=== PATIENT | female | born 1995 | race Caucasian/White ===

== ENCOUNTER 2017-04-14 01:49 | Observation (INO) | payer SELFPAY ==
[2017-04-14] VITALS (7 sets, daily range): BP systolic 92–133; BP diastolic 54–83; PULSE 63–100; RESP 15–16; TEMP 97.8–98.9; O2SAT 91–100
[~2017-04-14] VITALS: Ht 162.6 cm; Wt 68.0 kg
[2017-04-14 03:46] LABS: AUTOMATED NEUTROPHIL # 7.4 TH/MM3 (1.8-7.7); BASOPHIL # 0.1 TH/MM3 (0-0.2); BASOPHIL % 0.6 % (0.0-2.0); EOSINOPHIL % 0.5 % (0.0-4.0); HEMATOCRIT 40.8 % (35.0-46.0); HEMOGLOBIN 14.2 GM/DL (11.6-15.3); LYMPH % 10.8 % (9.0-44.0); MEAN CELL VOLUME 84.9 FL (80.0-100.0); MEAN CORPUSCULAR HEMOGLOBIN 29.5 PG (27.0-34.0); MEAN CORPUSCULAR HGB CONC 34.7 % (32.0-36.0); MEAN PLATELET VOLUME 7.5 FL (7.0-11.0); MONO % 6.2 % (0.0-8.0); MONOCYTE # 0.6 TH/MM3 (0-0.9); NEUT % 81.9 % (16.0-70.0); PLATELET COUNT 259 TH/MM3 (150-450); RED CELL DISTRIBUTION WIDTH 13.6 % (11.6-17.2); WHITE BLOOD COUNT 9.1 TH/MM3 (4.0-11.0)
[2017-04-14 03:53] LABS: BILIRUBIN, URINE NEG (NEG); BLOOD, URINE MOD (NEG); GLUCOSE,URINE NEG (NEG); KETONE, URINE 10 mg/dL (NEG); MUCUS URINE FEW /lpf (OCC); NITRITE,URINE NEG (NEG); PH, URINE 5.5 (5.0-8.5); SQUAMOUS EPITHELIAL CELL URINE 2 /hpf (0-5); URINE COLOR YELLOW (YELLW/STRAW); URINE LEUKOCYTE ESTERASE NEG (NEG)
[2017-04-14 04:09] LABS: ALBUMIN 4.1 GM/DL (3.4-5.0); ALT (GPT) 9 U/L (10-53); AST (GOT) 22 U/L (15-37); BICARBONATE 24.7 MEQ/L (21.0-32.0); BLOOD UREA NITROGEN 14 MG/DL (7-18); CHLORIDE 105 MEQ/L (98-107); CREATININE 0.71 MG/DL (0.50-1.00); GLOMERULAR FILTRATION RATE 101 ML/MIN (>89); GLUCOSE,RANDOM 167 MG/DL (74-106); SODIUM (NA) 138 MEQ/L (136-145)
[2017-04-14 04:11] LABS: ALKALINE PHOSPHATASE 70 U/L (45-117); TOTAL BILIRUBIN ADULT 0.5 MG/DL (0.2-1.0); TOTAL PROTEIN 8.5 GM/DL (6.4-8.2)
--- NOTE | 2017-04-14 05:23 | RADRPT ---
EXAM DATE/TIME: 04/14/2017 04:46 [facility] COMPARISON: No previous studies available for comparison. INDICATIONS : Right upper quadrant pain. MEDICAL HISTORY : Gallstones. SURGICAL HISTORY : None. ENCOUNTER: Initial ACUITY: 3 days PAIN SCORE: 7/10 LOCATION: Right upper quadrant MEASUREMENTS: LIVER: 13.5 cm length COMMON DUCT: 6 mm RIGHT KIDNEY: 10.1 x 4.8 x 4.6 cm FINDINGS: LIVER: Normal echotexture without focal lesion or ductal dilatation. COMMON DUCT: Upper limits of normal in size. No intraluminal mass or stone visualized. GALLBLADDER: There is a single 13 mm stone in the gallbladder neck. There is diffuse gallbladder wall thickening a nd likely trace pericholecystic fluid. No sonographic Hahn's sign. PANCREAS: The visualized portions are within normal limits. RIGHT KIDNEY: No evidence of hydronephrosis, stone, or mass. CONCLUSION: 1. Cholelithiasis with sonographic findings concerning for cholecystitis. HIDA scan may be performed to evaluate for cystic duct patency if there is continued clinical uncertainty. Dixon Steel MD on April 14, 2017 at 5:19 Board Certified Radiologist. This report was verified electronically.
[2017-04-14] MEDS ORDERED: ACETAMINOPHEN 325 MG TAB PO PRN (05:30)
[2017-04-14] MEDS ORDERED: SODIUM CHLORIDE 0.9% FLUSH 10 ML FLUSH IV FLUSH PRN (05:30)
[2017-04-14] MEDS ORDERED: NALOXONE HCL 0.4 MG/ML AMP IV PUSH PRN (05:30)
[2017-04-14] MEDS ORDERED: ONDANSETRON HCL 4 MG/2 ML VIAL IVP PRN (05:30)
[2017-04-14] MEDS ORDERED: SINCALIDE 5 MCG/5 ML VIAL IV ONE (05:41)
--- NOTE | 2017-04-14 05:41 | PD ---
HPI Chief Complaint: Abdominal Pain Time Seen by Provider: 04:19 Travel History International Travel<30 days: No Contact w/Intl Traveler<30days: No Traveled to known affect area: No History of Present Illness HPI 22-year-old female presents to the emergency department for complaint of right upper quadrant epigastric pain with nausea and vomiting. Symptoms have been present for 4 hours. Patient reports pain as severe. Patient was diagnosed one year ago with ultrasound with cholelithiasis and encouraged to have her gallbladder removed at that time. Subsequently patient has had several episodes of minor discomfort however after eating tacos last night has had persistent severe right upper quadrant pain. No reported voiced complaint of hematemesis coffee-ground emesis or melena. No report of fever or chills. Patient reports her pain 8/10 in intensity. Patient denies . [facility] Past Medical History Narrative Medical Cholelithiasis; no tobacco use; nursing notes reviewed Diminished Hearing: No Medical other: Yes (gallstones) ?: Unknown LMP: 04/14/17 Social History Alcohol Use: No Tobacco Use: No Substance Use: No Allergies-Medications (Allergen,Severity, Reaction): Coded Allergies: No Known Allergies (Unverified , 04/14/17) Narrative Medication none Review of Systems Except as stated in HPI: all other systems reviewed are Neg Physical Exam Narrative GENERAL: Well-developed well-nourished female in obvious discomfort SKIN: Warm and dry. HEAD: Normocephalic. EYES: No scleral icterus. No injection or drainage. NECK: Supple, trachea midline. No JVD or lymphadenopathy. CARDIOVASCULAR: Regular rate and rhythm without murmurs, gallops, or rubs. RESPIRATORY: Breath sounds equal bilaterally. No accessory muscle use. GASTROINTESTINAL: Abdomen soft, right upper quadrant and epigastric tenderness to palpation without guarding or rebound, nondistended. MUSCULOSKELETAL: No cyanosis, or edema. BACK: Nontender without obvious deformity. No CVA tenderness. Data Data Last Documented VS Vital Signs Date Time Temp Pulse Resp B/P (MAP) Pulse Ox O2 Delivery O2 Flow Rate FiO2 04/14/17 01:57 97.8 89 16 121/83 (96) 100 Orders Orders Complete Blood Count With Diff (04/14/17 02:52) Comprehensive Metabolic Panel (04/14/17 02:52) Urinalysis - C+S If Indicated (04/14/17 02:52) Iv Access Insert/Monitor (04/14/17 02:52) Oxygen Administration (04/14/17 02:52) Oximetry (04/14/17 02:52) Lipase (04/14/17 02:52) Ed Urine Pregnancytest Poc (04/14/17 04:01) Us Abdomen Gallbladder (04/14/17 ) Place In Observation (04/14/17 ) Vital Signs (Adult) Q4H (04/14/17 05:26) Activity Oob Ad Isis (04/14/17 05:26) Intake + Output NATHALIA.QSHIFT (04/14/17 05:26) Diet Npo (04/14/17 Breakfast) Sodium Chlor 0.9% 1000 Ml Inj (Ns 1000 M (04/14/17 05:26) Sodium Chloride 0.9% Flush (Ns Flush) (04/14/17 05:30) Sodium Chloride 0.9% Flush (Ns Flush) (04/14/17 09:00) Acetaminophen (Tylenol) (04/14/17 05:30) Ondansetron Inj (Zofran Inj) (04/14/17 05:30) Comprehensive Metabolic Panel (04/15/17 06:00) Complete Blood Count With Diff (04/15/17 06:00) Case Management Consult (04/14/17 05:26) Scd Bilateral/Knee High NATHALIA.BID (04/14/17 05:26) Naloxone Inj (Narcan Inj) (04/14/17 05:30) Consult Gastroenterology (04/14/17 ) Admit Order (Ed Use Only) (04/14/17 ) Vital Signs (Adult) Q4H (04/14/17 05:39) Activity Oob With Assistance (04/14/17 05:39) Notify Dr: Other (04/14/17 05:39) Piperacil-Tazo 4.5 Gm Premix (Zosyn 4.5 (04/14/17 05:45) Labs Laboratory Tests Test 04/14/17 03:00 White Blood Count 9.1 TH/MM3 Red Blood Count 4.80 MIL/MM3 Hemoglobin 14.2 GM/DL Hematocrit 40.8 % Mean Corpuscular Volume 84.9 FL Mean Corpuscular Hemoglobin 29.5 PG Mean Corpuscular Hemoglobin Concent 34.7 % Red Cell Distribution Width 13.6 % Platelet Count 259 TH/MM3 Mean Platelet Volume 7.5 FL Neutrophils (%) (Auto) 81.9 % Lymphocytes (%) (Auto) 10.8 % Monocytes (%) (Auto) 6.2 % Eosinophils (%) (Auto) 0.5 % Basophils (%) (Auto) 0.6 % Neutrophils # (Auto) 7.4 TH/MM3 Lymphocytes # (Auto) 1.0 TH/MM3 Monocytes # (Auto) 0.6 TH/MM3 Eosinophils # (Auto) 0.0 TH/MM3 Basophils # (Auto) 0.1 TH/MM3 CBC Comment DIFF FINAL Differential Comment Urine Color YELLOW Urine Turbidity CLEAR Urine pH 5.5 Urine Specific [place] 1.024 Urine Protein NEG mg/dL Urine Glucose (UA) NEG mg/dL Urine Ketones 10 mg/dL Urine Occult Blood MOD Urine Nitrite NEG Urine Bilirubin NEG Urine Urobilinogen LESS THAN 2.0 MG/DL Urine Leukocyte Esterase NEG Urine RBC 2 /hpf Urine WBC 2 /hpf Urine Squamous Epithelial Cells 2 /hpf Urine Mucus FEW /lpf Urine Yeast (Budding) RARE Microscopic Urinalysis Comment CULT NOT INDICATED Blood Urea Nitrogen 14 MG/DL Creatinine 0.71 MG/DL Random Glucose 167 MG/DL Total Protein 8.5 GM/DL Albumin 4.1 GM/DL Calcium Level 9.0 MG/DL Alkaline Phosphatase 70 U/L Aspartate Amino Transf (AST/SGOT) 22 U/L Alanine Aminotransferase (ALT/SGPT) 9 U/L Total Bilirubin 0.5 MG/DL Sodium Level 138 MEQ/L Potassium Level 3.6 MEQ/L Chloride Level 105 MEQ/L Carbon Dioxide Level 24.7 MEQ/L Anion Gap 8 MEQ/L Estimat Glomerular Filtration Rate 101 ML/MIN Lipase 122 U/L [facility] Medical Decision Making Medical Screen Exam Complete: Yes Emergency Medical Condition: Yes Medical Record Reviewed: Yes Interpretation(s) [id number] hCG: Negative Last Impressions Gall Bladder Ultrasound 04/14/17 0000 Signed Impressions: Service Date/Time: Friday, April 14, 2017 04:46 - CONCLUSION: 1. Cholelithiasis with sonographic findings concerning for cholecystitis. HIDA scan may be performed to evaluate for cystic duct patency if there is continued clinical uncertainty. Dixon Steel MD CBC & BMP Diagram 04/14/17 03:00 Total Protein 8.5 H, Albumin 4.1, Calcium Level 9.0, Alkaline Phosphatase 70, Aspartate Amino Transf (AST/SGOT) 22, Alanine Aminotransferase (ALT/SGPT) 9 L, Total Bilirubin 0.5 Vital Signs Date Time Temp Pulse Resp B/P (MAP) Pulse Ox O2 Delivery O2 Flow Rate FiO2 04/14/17 01:57 97.8 89 16 121/83 (96) 100 Differential Diagnosis Abdominal pain, cholecystitis, choledocholithiasis, pancreatitis, gastritis Narrative Course IV access obtained specimens collected and sent for resulting ultrasound of the gallbladder ordered Ultrasound is identified to have cholelithiasis with thickening of the gallbladder for cholecystitis Patient's case discussed with medicine service for admission for cholecystitis Physician Communication Physician Communication discussed with Dr Ortiz Diagnosis Primary Impression: Cholecystitis with cholelithiasis Admitting Information Admitting Physician Requests: Admit Erma Hernandez MD Apr 14, 2017 05:41
[2017-04-14] MEDS ORDERED: PIPERACIL-TAZO 4.5 GM PREMIX 100 ML IV ONE (05:45)
[2017-04-14] MEDS: SODIUM CHLOR 0.9% 1000 ML INJ 1,000 ML IV SCH ×2 (05:51→17:36)
[2017-04-14] MEDS: SODIUM CHLORIDE 0.9% FLUSH 10 ML FLUSH IV FLUSH SCH ×2 (08:07→21:00)
--- NOTE | 2017-04-14 12:08 | RADRPT ---
EXAM DATE/TIME: 04/14/2017 10:00 [facility] COMPARISON: No previous studies available for comparison. INDICATIONS : Abdominal pain. DOSE: 4.3 mCi Tc99m Mebrofenin IV MEDICATION: 1.4 mcg Cholecystokinin IV; No symptomatic response. Cholecystokinin was administered by slow infusion over 8 minutes beginning at 60 minutes. MEDICAL HISTORY : Gallstones. SURGICAL HISTORY : None. ENCOUNTER: Initial ACUITY: 3 days PAIN SCALE: 7/10 LOCATION: Right upper quadrant TECHNIQUE: Following the intravenous administration of radiotracer, dynamic sequential image were performed with continuous acquisition. Time-activity curves were generated. FINDINGS: HEPATIC KINETICS: There is prompt uptake of radiotracer in the liver. No focal defects are seen. There is normal rate of washout from the hepatic parenchyma. BILIARY CLEARANCE: Activity is first seen in the extrahepatic biliary system at 10 minutes. There is normal excretion i nto the small bowel. GALLBLADDER: Activity is first seen in the gallbladder at 10 minutes. POST CHOLECYSTOKININ: After Cholecystokinin administration, there no emptying of the gallbladder. Common bile duct kinetics are normal and there is no evidence of biliary obstruction. BILIARY ENTERIC REFLUX: None observed. CLINICAL: The patient was asymptomatic after Cholecystokinin administration. CONCLUSION: 1. Biliary dyskinesia with no emptying of the gallbladder following administration of Kinevac. 2. Patent cystic and common bile ducts 3. No reported discomfort following administration of Kinevac. 1. Romero Pate MD on April 14, 2017 at 12:02 Board Certified Radiologist. This report was verified electronically.
--- NOTE | 2017-04-14 15:38 | HHI.HP ---
[facility] No Primary Care Physician Admission Diagnosis cholecystitis w/ cholelithiasis Diagnoses: Chief Complaint: Abdominal Pain Travel History International Travel<30 Days: No Contact w/Intl Traveler <30 Da: No Traveled to Known Affected Are: No History of Present Illness Written by Angela Leonard, acting as scribe for Dr. Lemus on 04/14/17 at 15: 46. 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 Patient seen and examined today. States that she has right upper quadrant pain that has been ongoing problem for her. She came from [place] and states that they had an ultrasound study on her that showed some gallstones and a year ago repeat US showed that she more gallstones. States that her abdominal pain pain has subsided a little bit and she was not eating anything. She has some discomfort abdomen secondary to "hunger pains." Denies any fevers, chills, nausea, vomiting. Denies any chest pain, palpitations or shortness of breath or dyspnea. Denies dysuria. Review of Systems Except as stated in HPI: all other systems reviewed are Neg Past Family Social History Past Medical History Cholelithiasis Past Surgical History None Reported Medications None Allergies: Coded Allergies: No Known Allergies (Unverified , 04/14/17) Active Ordered Medications Current Medications Medications (Trade) Dose Ordered Sig/Gareth Route Start Time Stop Time Status Last Admin Sodium Chloride 1,000 ml @ 100 mls/hr Q10H IV 04/14/17 05:26 04/14/17 05:51 (NS Flush) 2 ml UNSCH PRN IV FLUSH 04/14/17 05:30 (NS Flush) 2 ml BID IV FLUSH 04/14/17 09:00 (Tylenol) 650 mg Q4H PRN PO 04/14/17 05:30 (Zofran Inj) 4 mg Q6H PRN IVP 04/14/17 05:30 (Narcan Inj) 0.4 mg UNSCH PRN IV PUSH 04/14/17 05:30 Family History Mother has diabetes, high blood pressure, grandfather has asthma Social History Originally from [place]. Denies alcohol use Reports current tobacco use but not daily Denies drug use Physical Exam Vital Signs Vital Signs Date Time Temp Pulse Resp B/P (MAP) Pulse Ox O2 Delivery O2 Flow Rate FiO2 04/14/17 15:14 98.2 69 16 92/59 (70) 98 04/14/17 13:01 98.4 63 16 102/67 (79) 98 04/14/17 07:47 15 04/14/17 07:47 98.1 63 15 104/59 (74) 100 Room Air 04/14/17 06:01 69 16 99/66 (77) 98 Room Air 04/14/17 01:57 97.8 89 16 121/83 (96) 100 Physical Exam GENERAL: This is a well-nourished, well-developed patient, in no apparent distress. SKIN: Cool and dry. HEAD: Atraumatic. Normocephalic. No temporal or scalp tenderness. EYES: Pupils equal round and reactive. Extraocular motions intact. No scleral icterus. No injection or drainage. ENT: Nose without bleeding. Throat without erythema. Uvula midline. Airway patent. NECK: Trachea midline. CARDIOVASCULAR: Regular rate and rhythm without murmurs, gallops, or rubs. RESPIRATORY: Clear to auscultation. Breath sounds equal bilaterally. No wheezes , rales, or rhonchi. GASTROINTESTINAL: Abdomen soft, nondistended. Hypoactive bowel sounds. Mild tenderness to deep palpation. MUSCULOSKELETAL: Extremities without clubbing, cyanosis, or edema. NEUROLOGICAL: Awake and alert. Portuguese Speaking. Cranial nerves II through XII intact. Motor and sensory grossly within normal limits. Normal speech. Laboratory Laboratory Tests Test 04/14/17 03:00 White Blood Count 9.1 Red Blood Count 4.80 Hemoglobin 14.2 Hematocrit 40.8 Mean Corpuscular Volume 84.9 Mean Corpuscular Hemoglobin 29.5 Mean Corpuscular Hemoglobin Concent 34.7 Red Cell Distribution Width 13.6 Platelet Count 259 Mean Platelet Volume 7.5 Neutrophils (%) (Auto) 81.9 Lymphocytes (%) (Auto) 10.8 Monocytes (%) (Auto) 6.2 Eosinophils (%) (Auto) 0.5 Basophils (%) (Auto) 0.6 Neutrophils # (Auto) 7.4 Lymphocytes # (Auto) 1.0 Monocytes # (Auto) 0.6 Eosinophils # (Auto) 0.0 Basophils # (Auto) 0.1 CBC Comment DIFF FINAL Differential Comment Urine Color YELLOW Urine Turbidity CLEAR Urine pH 5.5 Urine Specific [place] 1.024 Urine Protein NEG Urine Glucose (UA) NEG Urine Ketones 10 Urine Occult Blood MOD Urine Nitrite NEG Urine Bilirubin NEG Urine Urobilinogen LESS THAN 2.0 Urine Leukocyte Esterase NEG Urine RBC 2 Urine WBC 2 Urine Squamous Epithelial Cells 2 Urine Mucus FEW Urine Yeast (Budding) RARE Microscopic Urinalysis Comment CULT NOT INDICATED Blood Urea Nitrogen 14 Creatinine 0.71 Random Glucose 167 Total Protein 8.5 Albumin 4.1 Calcium Level 9.0 Alkaline Phosphatase 70 Aspartate Amino Transf (AST/SGOT) 22 Alanine Aminotransferase (ALT/SGPT) 9 Total Bilirubin 0.5 Sodium Level 138 Potassium Level 3.6 Chloride Level 105 Carbon Dioxide Level 24.7 Anion Gap 8 Estimat Glomerular Filtration Rate 101 Lipase 122 Human Chorionic Gonadotropin, Quant LESS THAN 1 Result Diagram: 04/14/17 0300 04/14/17 0300 Imaging Last Impressions Hepatobiliary Scan Nuclear Medicine 04/14/17 0000 Signed Impressions: Service Date/Time: Friday, April 14, 2017 10:00 - CONCLUSION: 1. Biliary dyskinesia with no emptying of the gallbladder following administration of Kinevac. 2. Patent cystic and common bile ducts 3. No reported discomfort following administration of Kinevac. 1. Romero Pate MD Gall Bladder Ultrasound 04/14/17 0000 Signed Impressions: Service Date/Time: Friday, April 14, 2017 04:46 - CONCLUSION: 1. Cholelithiasis with sonographic findings concerning for cholecystitis. HIDA scan may be performed to evaluate for cystic duct patency if there is continued clinical uncertainty. MD Elder Santoro VTE Risk Assessment Caprini VTE Risk Assessment: No/Low Risk (score <= 1) Caprini Risk Assessment Model Point Value = 1 Point Value = 2 Point Value = 3 Point Value = 5 Age 41-60 Minor surgery BMI > 25 kg/m2 Swollen legs Varicose veins or History of unexplained or recurrent spontaneous Oral contraceptives or hormone replacement Sepsis (< 1 month) Serious lung disease, including pneumonia (< 1 month) Abnormal pulmonary function Acute myocardial infarction Congestive heart failure (< 1 month) History of inflammatory bowel disease Medical patient at bed rest Age 61-74 Arthroscopic surgery Major open surgery (> 45 min) Laparoscopic surgery (> 45 min) Malignancy Confined to bed (> 72 hours) Immobilizing plaster cast Central venous access Age >= 75 History of VTE Family history of VTE Factor V Leiden Prothrombin [id number] Lupus anticoagulant Anticardiolipin antibodies Elevated serum homocysteine Heparin-induced thrombocytopenia Other congenital or acquired thrombophilia Stroke (< 1 month) Elective arthroplasty Hip, pelvis, or leg fracture Acute spinal cord injury (< 1 month) Prophylaxis Regimen Total Risk Factor Score Risk Level Prophylaxis Regimen 0-1 Low Early ambulation 2 Moderate Order ONE of the following: *Sequential Compression Device (SCD) *Heparin 5000 units SQ BID 3-4 Higher Order ONE of the following medications: *Heparin 5000 units SQ TID *Enoxaparin/Lovenox 40 mg SQ daily (WT < 150 kg, CrCl > 30 mL/min) *Enoxaparin/Lovenox 30 mg SQ daily (WT < 150 kg, CrCl > 10-29 mL/min) *Enoxaparin/Lovenox 30 mg SQ BID (WT < 150 kg, CrCl > 30 mL/min) AND/OR *Sequential Compression Device (SCD) 5 or more Highest Order ONE of the following medications: *Heparin 5000 units SQ TID (Preferred with Epidurals) *Enoxaparin/Lovenox 40 mg SQ daily (WT < 150 kg, CrCl > 30 mL/min) *Enoxaparin/Lovenox 30 mg SQ daily (WT < 150 kg, CrCl > 10-29 mL/min) *Enoxaparin/Lovenox 30 mg SQ BID (WT < 150 kg, CrCl > 30 mL/min) AND *Sequential Compression Device (SCD) Assessment and Plan Problem List: (1) Cholecystitis with cholelithiasis ICD Code: K80.10 - Calculus of gallbladder with chronic cholecystitis without obstruction Status: Acute Assessment and Plan Patient is a 22 year old with primary medical history of cholelithiasis came to the hospital complaints of abdominal pain and vomiting. Cholecystitis, with cholelithiasis - Ultrasound of the gallbladder showed 1. Cholelithiasis without sonographic findings concerning for cholecystitis. - HIDA scan showed 1. Biliary dyskinesia with no emptying of the gallbladder following demonstration of Kinevac. 2. Patent cystic and common bile ducts. 3. No reported discomfort following demonstration of Kinevac. - Discuss and explained with patient results of diagnostic testing. - General surgery consulted for further evaluation and recommendation. Patient is agreeable to surgical intervention if necessary. - May advance diet to clears if tolerated. DVT prop early ambulation This note was transcribed by [email or web address] [Angela Leonard]. I, Dr. Anshul Lemus personally performed the history, physical exam, and medical decision making; and confirmed the accuracy of the information in the transcribed note. Authenticated by Dr. Anshul Lemus on 04/14/17 at 16:31. Code Status Full code Discussed Condition With Patient, nursing Angela Adkins Apr 14, 2017 15:38 Anshul Lemus MD Apr 14, 2017 16:32
[2017-04-15 03:56] VITALS: BP 97/51; PULSE 76; RESP 16; TEMP 98.4; O2SAT 98
[2017-04-15 05:57] LABS: AUTOMATED NEUTROPHIL # 2.9 TH/MM3 (1.8-7.7); BASOPHIL % 0.6 % (0.0-2.0); EOSINOPHIL # 0.1 TH/MM3 (0-0.4); EOSINOPHIL % 2.6 % (0.0-4.0); HEMATOCRIT 37.4 % (35.0-46.0); HEMOGLOBIN 12.6 GM/DL (11.6-15.3); LYMPH % 28.1 % (9.0-44.0); LYMPHOCYTE # 1.4 TH/MM3 (1.0-4.8); MEAN CELL VOLUME 86.4 FL (80.0-100.0); MEAN CORPUSCULAR HGB CONC 33.6 % (32.0-36.0); MEAN PLATELET VOLUME 7.5 FL (7.0-11.0); MONO % 10.6 % (0.0-8.0); MONOCYTE # 0.5 TH/MM3 (0-0.9); NEUT % 58.1 % (16.0-70.0); PLATELET COUNT 241 TH/MM3 (150-450); RED BLOOD COUNT 4.33 MIL/MM3 (4.00-5.30); RED CELL DISTRIBUTION WIDTH 13.7 % (11.6-17.2)
[2017-04-15 06:31] LABS: ALBUMIN 3.4 GM/DL (3.4-5.0); ALKALINE PHOSPHATASE 57 U/L (45-117); ALT (GPT) 10 U/L (10-53); AST (GOT) 17 U/L (15-37); BICARBONATE 29.2 MEQ/L (21.0-32.0); BLOOD UREA NITROGEN 8 MG/DL (7-18); CALCIUM 8.5 MG/DL (8.5-10.1); CHLORIDE 109 MEQ/L (98-107); CREATININE 0.56 MG/DL (0.50-1.00); GLOMERULAR FILTRATION RATE 133 ML/MIN (>89); GLUCOSE,RANDOM 85 MG/DL (74-106); SODIUM (NA) 144 MEQ/L (136-145); TOTAL BILIRUBIN ADULT 0.7 MG/DL (0.2-1.0); TOTAL PROTEIN 7.2 GM/DL (6.4-8.2)
[2017-04-15 08:06] VITALS: BP 108/70; PULSE 77; RESP 20; TEMP 98.5; O2SAT 99
[2017-04-15] MEDS: SODIUM CHLORIDE 0.9% FLUSH 10 ML FLUSH IV FLUSH SCH (09:00)
--- NOTE | 2017-04-15 09:14 | MB ---
cc: Larry Ocampo MD DATE OF CONSULT: 04/14/2017 REASON FOR CONSULTATION: Cholelithiasis, cholecystitis. HISTORY OF PRESENT ILLNESS: This is a 22-year-old female who has had some complaints of abdominal discomfort, she says on and off for about a year. This is the worst it has ever been, where she had right upper quadrant pain, nausea. She apparently is from [place] and had an ultrasound done a year ago that showed gallstones. It would kind of come and go, but this is the worst pain she has ever experienced. Imaging study showed gallstones and HIDA scan showed nonvisualization of the gallbladder. Surgery was consulted. REVIEW OF SYSTEMS: She has no coronary artery disease, no heart dysfunctions, pulmonary or renal insufficiencies. PAST MEDICAL HISTORY: Otherwise negative, except for the gallstones. PHYSICAL EXAMINATION: GENERAL: She is a well nourished female in no apparent distress. She had some mild soreness in the right upper quadrant. NECK: Supple. CHEST: Clear. CARDIOVASCULAR: Regular rate. ABDOMEN: Otherwise, soft, but she does have tenderness, a little peritoneal sign to the right upper quadrant. NEUROLOGIC: She is alert, oriented, Grenadian speaking female. LABORATORY DATA: White count of 9, H and H of 14 and 40. Chemistry essentially normal. Beta hCG negative. Urinalysis okay. IMAGING STUDIES: Shows gallstones on ultrasound. HIDA scan done shows nonvisualization of the gallbladder, with normal ductal kinetics. ASSESSMENT: This is a 22-year-old female with biliary colic, right upper quadrant pain, gallstones. PLAN: Laparoscopic cholecystectomy tentatively scheduled first thing in the morning, depending on the OR schedule. This was discussed with the patient in detail. She appeared to understand. MD DEAN Obrien/CHRISTINA , 11:03 PM , 11:14 PM
[2017-04-15] MEDS ORDERED: ceFAZolin INJ 1,000 MG VIAL ONE (09:40)
[2017-04-15] MEDS ORDERED: BUPIVACAINE/EPINEPHRINE 0.5% PF 30 ML VIAL ONE (09:40)
[2017-04-15] MEDS ORDERED: ACETAMINOPHEN 1000 MG/100 ML 100 ML IV ONE (10:02)
[2017-04-15] MEDS ORDERED: DO NOT ADM ANY ANTICOAGULANT DRUGS PRN (11:05)
[2017-04-15] MEDS ORDERED: *MEPERIDINE 25 MG INJ VIAL PERIprocedural Use ONLY ONE (11:09)
--- NOTE | 2017-04-15 11:11 | HHI.PR ---
cc: Larry Ocampo MD Immediate Post Op Note Procedure Date: Apr 15, 2017 Pre Op Diagnosis: (1) Cholecystitis with cholelithiasis Post Op Diagnosis: (1) Status post laparoscopic cholecystectomy (2) Cholecystitis with cholelithiasis Surgeon: Larry Ocampo Feller Seam Operator(s): C OR record Procedure: Laparoscopic cholecystectomy Findings: Inflamed gallbladder with gallstones Complications: None Specimen(s) removed: Gallbladder Anesthesia: General Drains: None IVF Patient to: PACU Patient Condition: Good Implant/Devices: SEE IMPLANT LOG (if applicable) Date/Time of Procedure: SEE SURGICAL CARE RECORD Larry Ocampo MD Apr 15, 2017 11:11
[2017-04-15] MEDS ORDERED: NORC5TAB PO (11:15)
[2017-04-15] MEDS ORDERED: MORPHINE SULFATE 4 MG/ML INJ ONE (11:18)
[2017-04-15] MEDS ORDERED: MIDAZOLAM HCL 2 MG/2 ML VIAL ONE (11:18)
[2017-04-15] MEDS ORDERED: *morphine SULFATE 4 MG/ML PERIprocedure ONLY ONE (11:26)
--- NOTE | 2017-04-15 11:43 | MP ---
cc: Larry Ocampo MD DATE OF OPERATION: 04/15/2017 DATE OF PROCEDURE: 04/15/2017 PREOPERATIVE DIAGNOSES: Cholelithiasis, cholecystitis. POSTOPERATIVE DIAGNOSES: Cholelithiasis, cholecystitis. PROCEDURE PERFORMED: Laparoscopic cholecystectomy. ANESTHESIA: General. SURGEON: Larry Ocampo MD INDICATION FOR PROCEDURE: This is a pleasant 22-year-old female, who is from [place]. She had an ultrasound, she says over a year ago. She had gallstones. She could not get her gallbladder out. Her pain became more severe, came in to the Emergency Room yesterday. Ultrasound showed inflammation. HIDA showed nonvisualization of the gallbladder. Plans were made for the above. PROCEDURE IN DETAIL: The patient was taken to the operating room, placed in supine position. After anesthesia, her abdomen was prepped with Betadine. I made an incision just below the umbilicus. The Versess needle was inserted. The saline load test was performed and the abdomen insufflated with 15 mmHg. Camera was introduced. Two other working ports were placed 5 mm below the xiphoid and 5 mm in between the 2 previously placed ports. The gallbladder can be seen. It is obviously inflamed. Grasped it superiorly and laterally, identified the cystic duct, which is clearly identified. The cystic artery is very small and is cauterized. The gallbladder was then teased off the gallbladder bed and placed in an Endocatch and pulled out through the umbilical incision. The area of dissection is then inspected again. There is excellent hemostasis without biliary leakage. No other gross abnormality seen. We removed all the CO2 and the irrigating solution. The trocars were removed. The fascial layer of the umbilicus is closed with 0 Vicryl suture and the skin is closed with a 4-0 Vicryl. Steri-Strips were applied, sterile bandage applied. The patient tolerated the procedure well with no immediate postoperative complications. Larry Ocampo MD JDB/KD , 11:17 AM , 11:41 AM
[2017-04-15] MEDS ORDERED: ACETAMINOPHEN/HYDROcodone 325 MG/5 MG TAB PO PRN (12:00)
[2017-04-15] MEDS ORDERED: LIDOCAINE HCL 1% PF 5 ML SYRINGE OTHER ONE (12:00)
[2017-04-15] MEDS ORDERED: PROPOFOL 200 MG/20 ML AMP IV ONE (12:00)
[2017-04-15] MEDS ORDERED: ONDANSETRON HCL 4 MG/2 ML VIAL IV ONE (12:00)
[2017-04-15] MEDS ORDERED: GLYCOPYRROLATE 1 MG/5 ML SYRINGE IV PUSH ONE (12:00)
[2017-04-15] MEDS ORDERED: ROCURONIUM INJ 50 MG/5 ML SYRINGE IV PUSH ONE (12:00)
[2017-04-15] MEDS ORDERED: DEXAMETHASONE SOD PHOS 4 MG/ML VIAL IV ONE (12:00)
[2017-04-15 12:48] VITALS: BP 99/66; PULSE 80; RESP 20; TEMP 98.3; O2SAT 100
--- NOTE | 2017-04-15 16:56 | HHI.DS ---
Discharge Summary Admission Date Apr 14, 2017 at 05:40 Discharge Date: Apr 15, 2017 Admitting Diagnosis cholecystitis w/ cholelithiasis (1) Cholecystitis with cholelithiasis ICD Code: K80.10 - Calculus of gallbladder with chronic cholecystitis without obstruction Diagnosis: Principal Status: Acute (2) Status post laparoscopic cholecystectomy ICD Code: Z90.49 - Acquired absence of other specified parts of digestive tract Diagnosis: Principal Procedures Laparoscopic cholecystectomy Brief History - From Admission Written by Angela Leonard, acting as scribe for Dr. Lemus on 04/14/17 at 15: 46. [employer] - [place] [id number] Patient is a 22 year old with primary medical history of cholelithiasis came to the hospital complaints of abdominal pain and vomiting. Patient seen and examined today. States that she has right upper quadrant pain that has been ongoing problem for her. She came from [place] and states that they had an ultrasound study on her that showed some gallstones and a year ago repeat US showed that she more gallstones. States that her abdominal pain pain has subsided a little bit and she was not eating anything. She has some discomfort abdomen secondary to "hunger pains." Denies any fevers, chills, nausea, vomiting. Denies any chest pain, palpitations or shortness of breath or dyspnea. Denies dysuria. CBC/BMP: 04/15/17 0458 04/15/17 0458 Significant Findings Laboratory Tests Test 04/14/17 03:00 04/15/17 04:58 Neutrophils (%) (Auto) 81.9 % (16.0-70.0) Urine Ketones 10 mg/dL (NEG) Urine Occult Blood MOD (NEG) Urine Mucus FEW /lpf (OCC) Urine Yeast (Budding) RARE (NONE) Random Glucose 167 MG/DL (74-106) Total Protein 8.5 GM/DL (6.4-8.2) Alanine Aminotransferase (ALT/SGPT) 9 U/L (10-53) Monocytes (%) (Auto) 10.6 % (0.0-8.0) Chloride Level 109 MEQ/L (98-107) Imaging Last Impressions Hepatobiliary Scan Nuclear Medicine 04/14/17 0000 Signed Impressions: Service Date/Time: Friday, April 14, 2017 10:00 - CONCLUSION: 1. Biliary dyskinesia with no emptying of the gallbladder following administration of Kinevac. 2. Patent cystic and common bile ducts 3. No reported discomfort following administration of Kinevac. 1. Romero Pate MD Gall Bladder Ultrasound 04/14/17 0000 Signed Impressions: Service Date/Time: Friday, April 14, 2017 04:46 - CONCLUSION: 1. Cholelithiasis with sonographic findings concerning for cholecystitis. HIDA scan may be performed to evaluate for cystic duct patency if there is continued clinical uncertainty. Dixon Steel MD Hospital Course Patient is a 22 year old with primary medical history of cholelithiasis came to the hospital complaints of abdominal pain and vomiting. Patient seen and examined today. States that she has right upper quadrant pain that has been ongoing problem for her. She came from [place] and states that they had an ultrasound study on her that showed some gallstones and a year ago repeat US showed that she more gallstones. States that her abdominal pain pain has subsided a little bit and she was not eating anything. She has some discomfort abdomen secondary to "hunger pains." Denies any fevers, chills, nausea, vomiting. Denies any chest pain, palpitations or shortness of breath or dyspnea. Denies dysuria. Patient underwent surgery had laparoscopic cholecystectomy tolerated procedure well was discharged by surgery before being seen Pt Condition on Discharge: Stable Discharge Disposition: Discharge Home Discharge Time: <= 30 minutes Discharge Instructions DIET: Follow Instructions for: As Tolerated, No Restrictions, Low Fat Diet Speech Therapy-Diet Recommends: Regular Activities you can perform: See Additionl Instruction Other Activity Instructions: No heavy lifting over 10 pounds, no driving until seen by physician. Follow up Referrals: Surgical - 1 Week with Larry Ocampo MD New Medications: Hydrocodone-Acetaminophen ([place]) 5 Mg-325 Mg Tab 1 TAB PO Q6H PRN for PAIN, #21 TAB 0 Refills Mayito Song DO Apr 15, 2017 16:56
== END 2017-04-15 13:08 | disposition home or self-care (01) ==
LOC: NEPC 01:49 → NEDA 05:40 → NEPFCDU 12:48 → N07B 13:08
PROVIDERS: ADMIT Hospitalist; ATTEND Hospitalist
DX: K80.10 Calculus of gallbladder with chronic cholecystitis without obstruction (principal); K82.8 Other specified diseases of gallbladder
CPT/HCPCS: 00790; 47562; 76705; 78227; 80053; 81001; 83690; 84702; 84703; 85025; 88304; 96361; 96365; 99285; A9537; G0378; J0131; J0690; J1100; J2175; J2250; J2270; J2405; J2543; J2805; J3010; J7030